=== PATIENT | female | born 1940 | race Caucasian/White ===

== ENCOUNTER 2019-04-27 09:00 | Outpatient (CLI) | payer MEDICARE ==
--- NOTE | 2019-04-27 10:37 | MRI ---
MRI BRAIN WITH AND WITHOUT CONTRAST: INDICATIONS: Stroke. Weakness. COMPARISON: Reference made to head CT from 12/04/2018. FINDINGS: The ventricular system is appropriate in size. No evidence of acute territorial infarction, mass effe ct or midline shift. No hemorrhagic susceptibility. There is generalized mild parenchymal atrophy. No pathologic intra-axial enhancement. No signal abnormalities of the brain parenchyma. There is mild m ucosal thickening/retention cyst formation of the paranasal sinuses. Imaged skull base flow voids are grossly patent. IMPRESSION: No acute intracranial abnormalities. POS: [facility]
--- NOTE | 2019-04-27 10:41 | MRI ---
MRI CERVICAL SPINE WITHOUT CONTRAST: INDICATIONS: Weakness. FINDINGS: No acute marrow edema or significant malalignment. Mild degenerative hypertrophy at the atlantodental articular. No expansile process of the unenhanced cervical spinal cord evident. C2-C3: No significant stenosis. C3-C4: Mild disk osteophyte and uncinate process hypertrophy as well as left asymmetric facet hypertr ophy resulting in mild to moderate left foraminal stenosis. Slight effacement of the ventral thecal s ac. Minimal narrowing of right neural foramen. C4-C5: Disk osteophyte with mild effacement of the ventral thecal sac. There is right asymmetric unci elbert process hypertrophy and bilateral facet hypertrophy which results in mild bilateral neural pascual inal stenosis. C5-C6: Broad-based right asymmetric disk osteophyte formation results in moderate stenosis of the rig ht subarticular zone. Mild ventral cord effacement to the right of midline is present and there is mo derate to severe right foraminal stenosis. No significant left foraminal compromise. C6-C7: Disk osteophyte complex is present without high grade central canal stenosis. There is mild na rrowing of the right neural foramen. Minimal narrowing of the left neural foramen. C7-T1: No significant stenosis. IMPRESSION: Multilevel degenerative change of the cervical spine, most pronounced at the C5-C6 level due to right asymmetric disk osteophyte with moderate right subarticular zone stenosis. This does result in the p otential for impingement of the right C6 nerve root as well as right ventral hemicord effacement. POS: [facility]
--- NOTE | 2019-04-27 11:41 | RAD ---
Exam: XR Toe(s) Rt Min 2 View HISTORY: Ulceration right second toe. 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 There is evidence of osteopenia. Nonaggressive smooth appearing periosteal reaction is seen along the second, third, and fourth metatarsals. No osseous destruction is appreciated. No acute fracture, dislocation, or other acute osseous abnormality is identified. Subcutaneous soft tissue swelling is seen involving the proximal aspect of the right second toe. IMPRESSION: No acute osseous abnormality is identified. If there is concern for osteomyelitis, MRI would be danielle r study of choice for further evaluation. Subcutaneous soft tissue swelling right second toe.
[2019-04-27] MEDS ORDERED: Gadobenate Dimeglumine 529 MG/1 ML (20ML VIAL) ONE (12:00)
== END 2019-04-27 09:01 | disposition home or self-care (01) ==
LOC: MRI 09:00
PROVIDERS: ATTEND Psychiatry & Neurology Neurology
DX: L97.519 Non-pressure chronic ulcer of other part of right foot with unspecified severity (principal); R53.1 Weakness; I63.9 Cerebral infarction, unspecified; M47.812 Spondylosis without myelopathy or radiculopathy, cervical region; M48.02 Spinal stenosis, cervical region; M79.89 Other specified soft tissue disorders
CPT/HCPCS: 70553; 72141; 82565; A9577

== ENCOUNTER 2019-08-15 10:36 | Inpatient (IN) | payer MEDICARE, OTHER ==
[2019-08-15 11:09] LABS: Bilirubin Small (Negative); Blood, Urine Trace (Negative); Clarity Cloudy (Clear); Glucose, Urine (Dipstick) Negative (Negative); Leukocyte Moderate (Negative); Nitrite Positive (Negative); Protein, Urine (Dipstick) Trace mg/dL (Neg-Trace); Urobilinogen 0.2 mg/dL (Less than 2)
--- NOTE | 2019-08-15 11:11 | RAD ---
Exam: XR Humerus Lt 2 View STANDARD HISTORY: Generalized weakness. COMPARISON: None FINDINGS: There is a fracture involving the left humeral neck and humeral head. Fracture is mildly comminuted. Distal fracture fragment is mildly displaced medially with respect to the humeral head. There also appears to be mild rotation of the humeral head. IMPRESSION: Comminuted fracturing proximal left humerus with fracture involving the left humeral neck and humeral head with adjacent fracture fragments.
--- NOTE | 2019-08-15 11:12 | RAD ---
Exam: XR Elbow Lt 4 View STANDARD HISTORY: Generalized weakness COMPARISON: None FINDINGS: No acute fracture, dislocation, or other acute osseous abnormality is identified. IMPRESSION: No acute osseous abnormality is identified.
[2019-08-15 11:18] LABS: Bacteria/HPF 4+ HPF (None Seen); Calcium Oxalate Crystals 1+ HPF (None Seen); RBC/HPF 0-3 HPF (0-3)
[2019-08-15] MEDS ORDERED: Ketorolac Tromethamine 30 MG/ML VIAL ONE (11:21)
[2019-08-15 11:27] LABS: #Eosinphils 0.1 thou/uL (0.0-0.7); #Lymphocytes 1.3 thou/uL (1.20-3.40); #Monocytes 0.6 thou/uL (0.11-0.59); #Neutrophils 6.6 thou/uL (1.40-6.50); %Basophils 0.5 % (0.0-1.0); %Eosinophils 0.7 % (0.0-10.0); %Lymphocytes 14.6 % (21.0-51.0); %Monocytes 7.1 % (0.0-10.0); %Neutrophils 77.1 % (42.0-75.0); Hemoglobin 13.7 g/dL (12.0-16.0); Mean Corpuscular HGB CONC 33.7 g/dL (32.0-36.0); Mean Corpuscular Hemoglobin 32.3 pg (27.0-31.0); Mean Corpuscular Volume 95.7 fL (78.0-98.0); Mean Platelet Volume 7.8 fL (7.4-10.4); Platelet Count 209 thou/uL (130-400); RBC Distribution Width 11.6 % (11.5-14.5); Red Blood Cell (RBC) Count 4.24 mill/uL (4.20-5.40); White Blood Cell (WBC) Count 8.6 thou/uL (4.8-10.8)
[2019-08-15 11:48] LABS: ALT (SGPT) 18 U/L (8-55); AST (SGOT) 18 U/L (5-34); Albumin 3.9 g/dL (3.4-4.8); Alkaline Phosphatase 52 U/L (40-110); Anion Gap 10 mmol/L (10-20); BUN (Urea Nitrogen) 32 mg/dL (9.8-20.1); Bilirubin, Total 1.2 mg/dL (0.2-1.2); Calc. Creatinine Clearance 0 mL/min (70-130); Calcium 9.5 mg/dL (7.8-10.44); Carbon Dioxide 29 mmol/L (23-31); Chloride 107 mmol/L (98-107); Estimated GFR-MDRD 69; Glucose 127 mg/dL (83-110); Potassium 4.1 mmol/L (3.5-5.1); Protein, Total 6.9 g/dL (6.0-8.3); Sodium 142 mmol/L (136-145)
[2019-08-15] MEDS ORDERED: Bacitracin 1 PK ONE (11:56)
[2019-08-15] MEDS ORDERED: Nitrofurantoin Monohyd/M-Cryst 100 MG CAP PO SCH (14:00)
[2019-08-15 15:05] VITALS: BMI 24.0
[2019-08-15] MEDS ORDERED: Fentanyl 100 MCG/2 ML VIAL SLOW IVP SCH (16:30)
[2019-08-15] MEDS: cefTRIAXone\\ROCEPHIN 1 GM in Sodium Chloride 0.9% 100 ML IVPB SCH (17:34)
[2019-08-15] MEDS: Pyridostigmine Bromide IR 60 MG TAB PO SCH (20:33)
[2019-08-15] MEDS: traZODone HCl 50 MG TAB PO SCH (20:33)
[2019-08-15] MEDS: Cyclobenzaprine 10 MG TAB PO SCH (20:33)
[2019-08-15] MEDS: Fentanyl 100 MCG/2 ML VIAL SLOW IVP PRN (20:49)
--- NOTE | 2019-08-15 23:42 | HP ---
CHIEF COMPLAINT: Comminuted fracture of the left upper forearm and urinary tract infection, also with generalized weakness. HISTORY OF PRESENT ILLNESS: The patient is a 78-year-old female, who has been getting generally weaker over the last several days. On the day of admission, she sneezed so hard that she fell over and landed on her left arm and shoulder on the counter, intermittently had a shooting pain that radiated up into her neck and down her elbow to her hand. The pain was very intense, such that she came to the emergency room for further evaluation. She denied chest pain, shortness of breath, dizziness, diaphoresis, or headache. Before the sneeze aside from the weakness, she has been in her usual state of health. She does have myasthenia gravis. In the emergency room, x-rays revealed a comminuted fracture of the proximal left humeral head. She was also noted to be generally weak and unable to stand as well as having a urinary tract infection. PAST MEDICAL HISTORY: Significant for the aforementioned myasthenia gravis. 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 She also has general arthritis and hypertension. PAST SURGICAL HISTORY: Significant only for cataract replacement. PSYCHIATRIC HISTORY: Negative. SOCIAL HISTORY: She drinks socially, but denies heavy alcohol use or drug use or smoking. ALLERGIES: SHE HAS SIGNIFICANT ALLERGIES TO BEEF AND PORK WELL GALACTOSE AND SULFA. MEDICATIONS: On admission include, 1. Propranolol extended release 60 mg daily. 2. Meloxicam 15 mg daily. 3. Flexeril 10 mg at bedtime. 4. Trazodone 25 mg at bedtime. 5. Spironolactone 50 mg q.a.m. 6. Aspirin 81 mg daily. 7. Pyridostigmine bromide 60 mg t.i.d. REVIEW OF SYSTEMS: CONSTITUTIONAL: Significant for general weakness, but denied fever or chills. HEENT: Denies drainage or pain or ulcerations in her ears, nose, or throat. CARDIOVASCULAR: Denies chest pain or palpitations. RESPIRATORY: Denies cough or shortness of breath. GI: Denies nausea, vomiting, or diarrhea. : Denies blood in urine or stool, but admits to dysuria and frequency. MUSCULOSKELETAL: Severe left upper arm pain, neck pain, left elbow pain, but otherwise prior to the fall, no specific complaints aside from general weakness of the muscles themselves. SKIN: Significant bruising to the left upper arm. NEUROLOGIC: Slowed mentation, slurred speech, slowed response to questions, but this is baseline. PSYCHIATRIC: Negative for depression or anxiety. PHYSICAL EXAMINATION: VITAL SIGNS: Blood pressure 125/69, pulse 71, respirations 16, temperature 97.6, O2 saturations 98% on room air. Pain scale 7/10. GENERAL: This is a well-developed, well-nourished, female, alert, oriented, and cooperative. HEENT: Normocephalic, atraumatic. Pupils are equal, round, and reactive to light. Extraocular muscles are intact. Arcus senilis bilaterally. TMs, nares, and pharynx are clear. NECK: Supple. Trachea midline. CHEST: Clear to auscultation. BREASTS: Deferred. HEART: Regular rate and rhythm without murmur. ABDOMEN: Soft, nontender without hepatosplenomegaly. : Deferred. EXTREMITIES: Left upper extremity with 2+ edema and ecchymosis and diminished range of motion with sling in place. Other extremities without clubbing, cyanosis, or edema. Mild muscular wasting noted in upper and lower extremities. SKIN: Without rashes or lesions aside from the severe bruising of the left upper arm. NEUROLOGIC: Cranial nerves are intact. Unable to test gait and cerebellar function. Sensory exam is grossly intact. Mental status is nonfocal. LABORATORY DATA: On admission, WBCs 8.6, hemoglobin 13.7, hematocrit 40.6 with platelets at 209. Sodium 142, potassium 4.1, chloride 107, CO2 of 29, BUN 32, creatinine 0.81 with a GFR 69, glucose 127, calcium 9.5. Liver functions unremarkable. Urinalysis is positive for nitrites with moderate leukocyte esterase and wbc's 11 to 20. X-ray shows comminuted fracture of the left proximal humerus head, left elbow is normal. ASSESSMENT: 1. Acute fracture of the left proximal humerus. 2. Urinary tract infection. 3. Generalized weakness. 4. Myasthenia gravis. PLAN: Plan will be pain management, IV fluids, IV antibiotics, serial re-evaluation, and possible placement since she cannot live alone and take care of herself with one arm at this time. Job ID: [id number]
[2019-08-16] MEDS: Fentanyl 100 MCG/2 ML VIAL SLOW IVP PRN ×5 (05:45→22:46)
[2019-08-16 06:04] LABS: #Eosinphils 0.1 thou/uL (0.0-0.7); #Lymphocytes 1.9 thou/uL (1.20-3.40); #Monocytes 0.7 thou/uL (0.11-0.59); #Neutrophils 3.3 thou/uL (1.40-6.50); %Basophils 0.5 % (0.0-1.0); %Eosinophils 2.1 % (0.0-10.0); %Lymphocytes 32.3 % (21.0-51.0); %Monocytes 10.7 % (0.0-10.0); %Neutrophils 54.4 % (42.0-75.0); Hemoglobin 12.5 g/dL (12.0-16.0); Mean Corpuscular HGB CONC 34.1 g/dL (32.0-36.0); Mean Corpuscular Hemoglobin 32.6 pg (27.0-31.0); Mean Corpuscular Volume 95.6 fL (78.0-98.0); Mean Platelet Volume 7.8 fL (7.4-10.4); Platelet Count 172 thou/uL (130-400); RBC Distribution Width 11.7 % (11.5-14.5); Red Blood Cell (RBC) Count 3.83 mill/uL (4.20-5.40)
[2019-08-16 06:14] LABS: Anion Gap 11 mmol/L (10-20); BUN (Urea Nitrogen) 29 mg/dL (9.8-20.1); Calc. Creatinine Clearance 69 mL/min (70-130); Calcium 8.8 mg/dL (7.8-10.44); Carbon Dioxide 25 mmol/L (23-31); Chloride 110 mmol/L (98-107); Estimated GFR-MDRD 82; Glucose 109 mg/dL (83-110); Sodium 142 mmol/L (136-145)
[2019-08-16] MEDS: CeleCOXIB 100 MG CAP PO SCH (07:30)
[2019-08-16] MEDS: Aspirin Chewable 81 MG TAB PO SCH (07:30)
[2019-08-16] MEDS: Spironolactone 25 MG TAB PO SCH (07:30)
[2019-08-16] MEDS: Pyridostigmine Bromide IR 60 MG TAB PO SCH ×3 (07:31→19:53)
[2019-08-16] MEDS: Propranolol HCl LA 60 MG CAP PO SCH (07:35)
[2019-08-16] MEDS: cefTRIAXone\\ROCEPHIN 1 GM in Sodium Chloride 0.9% 100 ML IVPB SCH (16:17)
[2019-08-16] MEDS: traZODone HCl 50 MG TAB PO SCH (19:51)
[2019-08-16] MEDS: Cyclobenzaprine 10 MG TAB PO SCH (19:53)
[2019-08-17] MEDS: Fentanyl 100 MCG/2 ML VIAL SLOW IVP PRN ×2 (02:42→05:45)
[2019-08-17] MEDS: Pyridostigmine Bromide IR 60 MG TAB PO SCH ×3 (05:59→20:13)
[2019-08-17] MEDS: Spironolactone 25 MG TAB PO SCH (08:04)
[2019-08-17] MEDS: Aspirin Chewable 81 MG TAB PO SCH (08:06)
[2019-08-17] MEDS: CeleCOXIB 100 MG CAP PO SCH (08:07)
[2019-08-17] MEDS: Propranolol HCl LA 60 MG CAP PO SCH (12:16)
[2019-08-17] MEDS: HYDROcodone/Acetaminophen 10/325 mg Tablet PO PRN ×2 (12:41→20:18)
[2019-08-17] MEDS: Sulfameth/Trimethoprim DS 800-160mg TAB PO SCH (20:15)
[2019-08-17] MEDS: Cyclobenzaprine 10 MG TAB PO SCH (20:17)
[2019-08-18] MEDS: traZODone HCl 50 MG TAB PO SCH ×2 (01:14→20:24)
[2019-08-18] MEDS: Spironolactone 25 MG TAB PO SCH (08:44)
[2019-08-18] MEDS: CeleCOXIB 100 MG CAP PO SCH (08:46)
[2019-08-18] MEDS: Aspirin Chewable 81 MG TAB PO SCH (08:46)
[2019-08-18] MEDS: Propranolol HCl LA 60 MG CAP PO SCH (08:47)
[2019-08-18] MEDS: Sulfameth/Trimethoprim DS 800-160mg TAB PO SCH (08:52)
[2019-08-18] MEDS: Pyridostigmine Bromide IR 60 MG TAB PO SCH ×3 (08:54→20:25)
[2019-08-18] MEDS: HYDROcodone/Acetaminophen 10/325 mg Tablet PO PRN (13:58)
[2019-08-18] MEDS: Cyclobenzaprine 10 MG TAB PO SCH (20:24)
[2019-08-19] MEDS: HYDROcodone/Acetaminophen 10/325 mg Tablet PO PRN ×3 (04:14→15:24)
[2019-08-19] MEDS: Pyridostigmine Bromide IR 60 MG TAB PO SCH ×2 (08:30→17:28)
[2019-08-19] MEDS: CeleCOXIB 100 MG CAP PO SCH (08:31)
[2019-08-19] MEDS: Spironolactone 25 MG TAB PO SCH (08:31)
[2019-08-19] MEDS: Aspirin Chewable 81 MG TAB PO SCH (08:32)
[2019-08-19] MEDS: Propranolol HCl LA 60 MG CAP PO SCH (08:32)
[2019-08-19 16:52] VITALS: BP 104/69; TEMP 97.7
[2019-08-19] MEDS ORDERED: Nitrofurantoin Monohyd/M-Cryst 100 MG CAP PO SCH (21:00)
== END 2019-08-19 19:05 | DRG 563 ==
LOC: ERS 10:36 → T4-A 13:21
PROVIDERS: ADMIT Specialist; ATTEND Specialist
DX: S42.202A Unspecified fracture of upper end of left humerus, initial encounter for closed fracture (principal); I69.354 Hemiplegia and hemiparesis following cerebral infarction affecting left non-dominant side; N39.0 Urinary tract infection, site not specified; G70.00 Myasthenia gravis without (acute) exacerbation; W19.XXXA Unspecified fall, initial encounter; Z88.2 Allergy status to sulfonamides; Z88.8 Allergy status to other drugs, medicaments and biological substances; Z91.018 Allergy to other foods; Z79.82 Long term (current) use of aspirin; Z79.899 Other long term (current) drug therapy
CPT/HCPCS: 36415; 80048; 80053; 81003; 81015; 85025; 87077; 87086; 87186; 93005; 96374; J0696; J1885; J3010; J3490